=== PATIENT | male | born 1950 | race Hispanic/Latino ===

== ENCOUNTER 2018-08-28 18:56 | Observation (INO) | payer MEDICARE ==
[~2018-08-28] VITALS: Ht 170.2 cm; Wt 134.9 kg
[2018-08-28 19:35] LABS: BASOPHILS % (AUTO) 0.6 % (0.0-5.0); EOSINOPHILS % (AUTO) 0.8 % (0.0-8.0); HEMATOCRIT 47.1 % (42-54); LYMPHOCYTES % (AUTO) 20.3 % (21.0-51.0); MEAN CORPUSCULAR HEMOGLOBIN 30.8 pg (27.0-33.0); MEAN CORPUSCULAR VOLUME 90.5 fL (79-99); MONOCYTES % (AUTO) 11.5 % (3.0-13.0); NEUTROPHILS % (AUTO) 66.8 % (40.0-77.0); PLATELET COUNT (AUTO) 97 K/uL (130-400); RED CELL DISTRIBUTION WIDTH 14.1 % (11.0-15.5); WHITE BLOOD COUNT (AUTO) 9.1 K/uL (4.8-10.8)
[2018-08-28 19:46] LABS: CARBON DIOXIDE 27 mmol/L (21-32); CHLORIDE 100 mmol/L (101-111); CREATININE 1.2 mg/dL (0.5-1.5); GLOMERULAR FILTR. RATE CALC 64 mL/min (>60); GLUCOSE,RANDOM 226 mg/dL (70-105); POTASSIUM 3.8 mmol/L (3.5-5.1); SODIUM SERUM 135 mmol/L (136-145); UREA NITROGEN, BLOOD 17 mg/dL (7-18)
[2018-08-28 19:49] LABS: INR 1.03 (0.85-1.15); PARTIAL THROMBOPLASTIN TIME 27.9 SEC (26.3-35.5); PROTHROMBIN TIME 10.8 SEC (9.6-11.6)
[2018-08-28 19:58] LABS: APPEARANCE,URINE Clear (CLEAR); BILIRUBIN,URINE Negative (NEGATIVE); COLOR,URINE Yellow (YELLOW); GLUCOSE, URINE (UA) Negative (NEGATIVE); KETONES,URINE Negative (NEGATIVE); LEUKOCYTE ESTERASE ,URINE Negative (NEGATIVE); NITRATE,URINE Negative (NEGATIVE); OCCULT BLOOD,URINE Small (NEGATIVE); PROTEIN,URINE Negative (NEGATIVE)
[2018-08-28 19:59] LABS: ALANINE AMINOTRANSFERASE 33 U/L (12-78); ALBUMIN 3.7 g/dL (3.5-5.0); ASPARTATE AMINOTRANSFERASE 25 U/L (10-37); BILIRUBIN,TOTAL 0.8 mg/dL (0.2-1.0); CREATINE KINASE, TOTAL 131 U/L (21-232); MYOGLOBIN 81 ng/mL (10-92); TOTAL PROTEIN, SERUM 7.5 g/dL (6.0-8.3); TROPONIN I < 0.04 ng/mL (0.00-0.06)
[2018-08-28 20:23] LABS: BACTERIA,URINE None Seen /HPF (None Seen); RBC,URINE 0-1 /HPF (0-1); SQUAMOUS EPITHELIAL CELL,UR 0-2 /HPF (0-2); WBC,URINE 0-1 /HPF (0-1)
[2018-08-28] MEDS ORDERED: CEFTRIAXONE SODIUM 1 GM ONE (20:27)
[2018-08-28] MEDS ORDERED: AZITHROMYCIN 500MG+NS 250ML 250 ML IV ONE (20:27)
[2018-08-28] MEDS ORDERED: IPRATROPIUM/ALBUTEROL SULFATE 3 ML SOLUTION IH ONE (20:31)
[2018-08-28 20:50] LABS: ABG BASE EXCESS 0.7 mmol/L (-2.0-3.0); ABG HCO3 24.9 mmol/L (21.0-28.0); ABG PCO2 38 mmHg (35-48)
[2018-08-28] MEDS ORDERED: METHYLPREDNISOLONE SOD SUCC 125MG/2ML VIAL ONE (21:45)
[2018-08-28 23:25] VITALS: BP 151/86
[2018-08-29] MEDS ORDERED: IPRATROPIUM/ALBUTEROL SULFATE 3 ML SOLUTION IH ONE (00:14)
[2018-08-29] MEDS ORDERED: LISI1TAB11 PO (00:44)
[2018-08-29] MEDS ORDERED: INSU100V12 SQ (00:44)
[2018-08-29] MEDS ORDERED: AMLO5TAB9 PO (00:44)
[2018-08-29] MEDS ORDERED: INSU100I3 SQ (00:53)
[2018-08-29] MEDS ORDERED: ACETAMINOPHEN 325 MG TAB PO PRN (01:30)
[2018-08-29] MEDS ORDERED: PHARMACY COMMUNICATION MISC SCH (01:45)
[2018-08-29] MEDS ORDERED: DEXTROSE 50%-WATER 50 ML DISP.SYRIN IV PRN (01:45)
[2018-08-29] MEDS ORDERED: GLUCAGON 1MG KIT 1 MG ML IM PRN (01:45)
[2018-08-29] MEDS: METHYLPREDNISOLONE SOD SUCC 40MG/ML 1ML IVP SCH ×2 (02:00→14:51)
[2018-08-29] MEDS: CEFTRIAXONE SODIUM 500 MG VIAL IVP SCH (02:00)
[2018-08-29 03:00] VITALS: BP 120/62
[2018-08-29] MEDS ORDERED: AZITHROMYCIN 500 MG in SODIUM CHLORIDE 0.9% 250 ML IV SCH (03:00)
[2018-08-29 05:28] LABS: HEMATOCRIT 47.7 % (42-54); MEAN CORPUSCULAR HEMOGLOBIN 30.7 pg (27.0-33.0); MEAN CORPUSCULAR HGB CONC 33.4 g/dL (32.0-36.0); MEAN CORPUSCULAR VOLUME 91.7 fL (79-99); NUCLEATED RED BLOOD CELLS 0.1 % (0.0-0.19); PLATELET COUNT (AUTO) 59 K/uL (130-400); RED CELL DISTRIBUTION WIDTH 13.7 % (11.0-15.5); WHITE BLOOD COUNT (AUTO) 6.7 K/uL (4.8-10.8)
[2018-08-29 05:46] LABS: ALBUMIN 3.4 g/dL (3.5-5.0); BILIRUBIN,TOTAL 0.5 mg/dL (0.2-1.0); CREATININE 1.2 mg/dL (0.5-1.5); POTASSIUM 4.7 mmol/L (3.5-5.1); TOTAL PROTEIN, SERUM 7.2 g/dL (6.0-8.3)
[2018-08-29] MEDS: IPRATROPIUM/ALBUTEROL SULFATE 3 ML SOLUTION IH PRN ×5 (06:58→21:32)
[2018-08-29] MEDS: INSULIN R PO SS1 SQ SCH ×4 (07:30→21:00)
[2018-08-29] MEDS: INSULIN LISPRO 100 UNIT/ML 3ML SQ SCH ×3 (07:30→17:00)
[2018-08-29] MEDS: INSULIN GLARGINE 100 UNITS/ML 10 ML VIAL SQ SCH ×3 (07:30→17:00)
--- NOTE | 2018-08-29 07:30 | NUR ---
PATIENT UPDATE DR. SPEARS ON ROUNDS, CLARIFIED INSULIN ORDERS AND OKD TO START SLIDING SCALE PLUS THE HOME INSULIN. BLOOD SUGAR THIS AM AT 274, GAVE BOTH THE LEVEMIR AND HUMULOG PER HOME MED, REFUSED THE REGULAR INSULIN COVERAGE.
[2018-08-29 08:49] VITALS: BP 122/72
[2018-08-29] MEDS: LISINOPRIL 20 MG TABLET PO SCH ×2 (09:00→20:59)
[2018-08-29] MEDS: ENOXAPARIN SODIUM 40 MG/0.4 ML SYRINGE SQ SCH (09:00)
[2018-08-29] MEDS: HYDROCHLOROTHIAZIDE 25 MG TABLET PO SCH ×2 (09:00→21:00)
[2018-08-29] MEDS: AMLODIPINE BESYLATE 5 MG TAB PO SCH (09:00)
[2018-08-29 11:35] VITALS: BP 119/67
[2018-08-29] MEDS ORDERED: AZITHROMYCIN 500MG+NS 250ML 250 ML IV SCH ×2 (13:00→21:00)
[2018-08-29 16:00] VITALS: BP 126/72
[2018-08-29 19:21] VITALS: BP 126/77
[2018-08-29 23:25] VITALS: BP 115/67
[2018-08-30] MEDS: IPRATROPIUM/ALBUTEROL SULFATE 3 ML SOLUTION IH PRN (01:12)
[2018-08-30] MEDS: METHYLPREDNISOLONE SOD SUCC 40MG/ML 1ML IVP SCH (02:00)
[2018-08-30 03:30] VITALS: BP 111/65
[2018-08-30] MEDS: CEFTRIAXONE SODIUM 500 MG VIAL IVP SCH (03:37)
[2018-08-30 07:00] VITALS: BP 127/68
[2018-08-30] MEDS: INSULIN LISPRO 100 UNIT/ML 3ML SQ SCH (07:30)
[2018-08-30] MEDS: INSULIN GLARGINE 100 UNITS/ML 10 ML VIAL SQ SCH (07:30)
[2018-08-30] MEDS: INSULIN R PO SS1 SQ SCH (07:30)
[2018-08-30] MEDS: LISINOPRIL 20 MG TABLET PO SCH (09:00)
[2018-08-30] MEDS: AMLODIPINE BESYLATE 5 MG TAB PO SCH (09:00)
[2018-08-30] MEDS: ENOXAPARIN SODIUM 40 MG/0.4 ML SYRINGE SQ SCH (09:00)
[2018-08-30] MEDS: HYDROCHLOROTHIAZIDE 25 MG TABLET PO SCH (09:00)
--- NOTE | 2018-08-30 09:30 | NUR ---
DISCHARGE SUMMARY ,REVIEW . WITH PT . DISCHARGE MEDICATION REVIEW .ALSO . DENIES ANY . SHORT OF BREATH OR DISCOMFORT. . PT STATED THAT HE HAS A APPT .SETUP. ALREADY. FOR A FOLLOWUP. .. SL TO HIS RT HAND DC,WITH NO REDNESS NOTED . A CLARE APPLICATION ON .
== END 2018-08-30 09:25 | disposition home or self-care (01) ==
LOC: EDH 18:56 → EDHIP 21:45 → 3CH 23:20
PROVIDERS: ADMIT Internal Medicine; ATTEND Internal Medicine
DX: J20.9 Acute bronchitis, unspecified (principal); E11.65 Type 2 diabetes mellitus with hyperglycemia; E78.5 Hyperlipidemia, unspecified; J06.9 Acute upper respiratory infection, unspecified; E66.2 Morbid (severe) obesity with alveolar hypoventilation; I11.0 Hypertensive heart disease with heart failure; I50.9 Heart failure, unspecified; M19.90 Unspecified osteoarthritis, unspecified site; T38.0X5A Adverse effect of glucocorticoids and synthetic analogues, initial encounter; Y92.89 Other specified places as the place of occurrence of the external cause; Z79.899 Other long term (current) drug therapy
CPT/HCPCS: 36415 ×2; 36600; 71045; 80053 ×2; 81001; 82550; 82803; 82948 ×6; 83605 ×2; 83874; 83880; 84484; 85025; 85027; 85610; 85730; 87040 ×2; 87088; 87804 ×2; 93005; 94640 ×8; 94664; 96365; 96375 ×2; 99291; G0378 ×36; J0456 ×3; J0696 ×3; J2920; J2930; J7030

== ENCOUNTER → 2019-01-21 | Outpatient (CLI) | payer MEDICARE ==
[~2019-01-21] MED LIST: AMLO5TAB9 PO; INSU100I3 SQ; INSU100V12 SQ; LISI1TAB28 PO
== END | disposition home or self-care (01) ==
LOC: OIH 10:00
PROVIDERS: ATTEND Internal Medicine
DX: M25.78 Osteophyte, vertebrae (principal)
CPT/HCPCS: 72070

== ENCOUNTER → 2020-09-06 | Outpatient (CLI) | payer MEDICARE ==
[~2020-09-06] MED LIST changes: +AMLO-257 PO; -AMLO5TAB9 PO; -LISI1TAB28 PO; +LISI1TAB51 PO
== END | disposition home or self-care (01) ==
LOC: RAH 12:18
PROVIDERS: ATTEND Internal Medicine
DX: J42 Unspecified chronic bronchitis (principal)
CPT/HCPCS: 71046

== ENCOUNTER → 2020-10-02 | Outpatient (CLI) | payer MEDICARE ==
[~2020-10-02] MED LIST changes: +AZIT500T PO; +METH4TAB3 PO
== END | disposition home or self-care (01) ==
LOC: RAH 09:29
PROVIDERS: ATTEND Otolaryngology Plastic Surgery within the Head & Neck
DX: K21.9 Gastro-esophageal reflux disease without esophagitis (principal); R13.10 Dysphagia, unspecified
CPT/HCPCS: 74230; 92611

== ENCOUNTER 2020-10-03 09:00 | Emergency (ER) | payer MEDICARE ==
[~2020-10-03] VITALS: Ht 170.2 cm; Wt 119.7 kg
[~2020-10-03 09:00] MED LIST changes: -AZIT500T PO; -METH4TAB3 PO
[2020-10-03 09:22] VITALS: BP 138/59
[2020-10-03] MEDS ORDERED: SOLU-MEDROL 125MG/2ML VIAL IVP SCH (09:45)
[2020-10-03] MEDS ORDERED: IPRATROPIUM/ALBUTEROL SULFATE 3 ML SOLUTION IH SCH (09:45)
[2020-10-03 10:22] LABS: BASOPHILS % (AUTO) 0.5 % (0.0-5.0); EOSINOPHILS % (AUTO) 0.2 % (0.0-8.0); LYMPHOCYTES % (AUTO) 14.9 % (21.0-51.0); MEAN CORPUSCULAR HEMOGLOBIN 30.9 pg (27.0-33.0); MEAN CORPUSCULAR HGB CONC 34.5 g/dL (32.0-36.0); MEAN CORPUSCULAR VOLUME 89.7 fL (79-99); MONOCYTES % (AUTO) 10.7 % (3.0-13.0); NEUTROPHILS % (AUTO) 73.2 % (40.0-77.0); PLATELET COUNT (AUTO) 115 K/uL (130-400); RED BLOOD CELL COUNT(AUTO) 5.24 MIL/uL (4.50-6.20); WHITE BLOOD COUNT (AUTO) 8.7 K/uL (4.8-10.8)
[2020-10-03 10:39] LABS: ALBUMIN 3.6 g/dL (3.5-5.0); BILIRUBIN,TOTAL 0.9 mg/dL (0.2-1.0); CREATININE 0.9 mg/dL (0.5-1.5); POTASSIUM 3.8 mmol/L (3.5-5.1); TOTAL PROTEIN, SERUM 7.4 g/dL (6.0-8.3)
[2020-10-03 10:44] VITALS: BP 124/55
[2020-10-03 12:00] VITALS: BP 128/56
[2020-10-03] MEDS ORDERED: METH4TAB3 PO (13:47)
[2020-10-03] MEDS ORDERED: AZIT500T PO (13:47)
[2020-10-03 14:24] VITALS: BP 134/61
== END 2020-10-03 14:26 | disposition home or self-care (01) ==
LOC: EDH 09:00
DX: J44.1 Chronic obstructive pulmonary disease with (acute) exacerbation (principal); E66.9 Obesity, unspecified; Z68.41 Body mass index [BMI] 40.0-44.9, adult
CPT/HCPCS: 36415; 71250; 80053; 82948; 85025; 93005; 94640; 96374; 99285; J2930

== ENCOUNTER 2021-04-10 16:12 | Emergency (ER) | payer MEDICARE ==
[~2021-04-10] VITALS: Ht 175.3 cm; Wt 134.3 kg
[~2021-04-10 16:12] MED LIST changes: +AZIT500T PO; +METH4TAB3 PO
[2021-04-10 17:17] LABS: BASOPHILS % (AUTO) 0.5 % (0.0-5.0); EOSINOPHILS % (AUTO) 1.1 % (0.0-8.0); HEMATOCRIT 42.5 % (42-54); LYMPHOCYTES % (AUTO) 15.8 % (21.0-51.0); MEAN CORPUSCULAR HGB CONC 34.8 g/dL (32.0-36.0); MEAN CORPUSCULAR VOLUME 89.1 fL (79-99); MONOCYTES % (AUTO) 10.9 % (3.0-13.0); NEUTROPHILS % (AUTO) 71.3 % (40.0-77.0); PLATELET COUNT (AUTO) 105 K/uL (130-400); RED BLOOD CELL COUNT(AUTO) 4.77 MIL/uL (4.50-6.20); RED CELL DISTRIBUTION WIDTH 13.1 % (11.0-15.5); WHITE BLOOD COUNT (AUTO) 9.2 K/uL (4.8-10.8)
[2021-04-10] MEDS ORDERED: PANTOPRAZOLE 40 MG/VIAL IVP ONE (17:30)
[2021-04-10 17:31] LABS: POTASSIUM 3.5 mmol/L (3.5-5.1)
[2021-04-10 17:36] LABS: ALBUMIN 3.7 g/dL (3.5-5.0); BILIRUBIN,TOTAL 0.5 mg/dL (0.2-1.0); TOTAL PROTEIN, SERUM 7.5 g/dL (6.0-8.3)
[2021-04-10 17:41] LABS: B-TYPE NATRIURETIC PEPTIDE 11 pg/mL (0-100)
[2021-04-10] MEDS ORDERED: SUCRALFATE 1 GM TABLET PO SCH (18:50)
[2021-04-10] MEDS ORDERED: SOLU-MEDROL 125MG VIAL IVP ONE (19:00)
[2021-04-10] MEDS ORDERED: PANT40TA PO (21:43)
[2021-04-10 21:47] VITALS: BP 131/59
== END 2021-04-10 22:19 | disposition home or self-care (01) ==
LOC: EDH 16:12
DX: R06.00 Dyspnea, unspecified (principal); J38.5 Laryngeal spasm; R10.13 Epigastric pain; Z20.822 Contact with and (suspected) exposure to COVID-19; E11.9 Type 2 diabetes mellitus without complications; E78.00 Pure hypercholesterolemia, unspecified; I11.0 Hypertensive heart disease with heart failure; I50.9 Heart failure, unspecified; I25.10 Atherosclerotic heart disease of native coronary artery without angina pectoris; J44.9 Chronic obstructive pulmonary disease, unspecified; M19.90 Unspecified osteoarthritis, unspecified site; Z88.0 Allergy status to penicillin; Z79.4 Long term (current) use of insulin; Z79.52 Long term (current) use of systemic steroids; Z79.899 Other long term (current) drug therapy; Z86.73 Personal history of transient ischemic attack (TIA), and cerebral infarction without residual deficits; Z87.891 Personal history of nicotine dependence
CPT/HCPCS: 36415; 71045; 80053; 82948; 83880; 84484 ×2; 85025; 87635; 93005 ×2; 96374; 96375; 99285; C9113; C9803; J2930